=== PATIENT | female | born 1985 | race Caucasian/White ===

== ENCOUNTER 2019-02-17 12:16 | Outpatient (CLI) | payer MEDICARE, MEDICAID ==
[~2019-02-17 12:16] MED LIST: ALBU1.25 NEB; ALBU2.5V NPPB; ALBUTEROL MDI; CARB200T4 PO; CETI10TA18 PO; CLON2TAB16 PO; CLON2TAB9 PO; DIPH25CA61 PO; DOXY100T PO; FAMO20TA7 PO; FLUT16SP24 NAS; FLUT1DIS3 INH; PRED5TAB PO; VENL150T PO
== END 2019-02-17 23:59 | disposition home or self-care (01) ==
LOC: CARD 12:16
PROVIDERS: ATTEND Psychiatry & Neurology Neurology
DX: R94.01 Abnormal electroencephalogram [EEG] (principal); G35 Multiple sclerosis
CPT/HCPCS: 95819